=== PATIENT | female | born 1970 | race Two or more races ===

== ENCOUNTER → 2024-07-19 | Outpatient (CLI) | payer BC, SELFPAY ==
--- NOTE | 2024-07-19 08:08 | XR_ITS ---
Examination: Abdomen sonogram, complete Date and time of exam: July 19, 2024 0826 hours INDICATIONS: Abdominal bloating and gassiness beginning 3 years ago, history gallstones. Technique: Multiple real-time grayscale transabdominal sonographic images of the abdomen have been obtained. Findings: Multiple gallstones Gallbladder wall is thickened 0.5 cm Common bile duct 0.4 cm Pancreatic head 2.7 cm Aorta not enlarged Liver 11.4 cm fatty infiltration smooth contour no focal liver lesions Normal hepatopedal portal venous flow Patent IVC Right kidney 10.5 x 5.4 x 5.3 cm cortex 1.2 cm Left kidney 10.8 x 5.2 x 5.6 cm renal cortex 1.8 cm Mild bilateral renal parenchymal scar formation Spleen 7.9 cm IMPRESSION: Cholelithiasis, consider HIDA scan or MRCP follow-up to exclude cholecystitis Normal sized common bile duct Fatty liver
== END | disposition home or self-care (01) ==
LOC: CDIM 08:05
PROVIDERS: PCP Internal Medicine; Referring Provider Specialist; Visit Provider Specialist
DX: K80.20 Calculus of gallbladder without cholecystitis without obstruction (principal); K76.0 Fatty (change of) liver, not elsewhere classified
CPT/HCPCS: 76700

== ENCOUNTER → 2024-07-19 | Outpatient (CLI) | payer BC, SELFPAY | END | disposition home or self-care (01) | LOC: COPL 15:02 | PROVIDERS: PCP Internal Medicine; Referring Provider Specialist; Visit Provider Specialist | DX: R10.32 Left lower quadrant pain (principal) ==

== ENCOUNTER → 2024-07-24 | Outpatient (CLI) | payer BC, SELFPAY ==
[2024-07-24 07:52] LABS: Misc Send Out* See Sep Rpt
[2024-07-28 06:53] LABS: Immunoglobulin A 141 mg/dL (47-310); tTG Ab, IgA <1.0 U/mL
== END | disposition home or self-care (01) ==
LOC: COPL 07:38
PROVIDERS: PCP Internal Medicine; Referring Provider Specialist; Visit Provider Specialist
DX: R10.32 Left lower quadrant pain (principal); R10.31 Right lower quadrant pain; R14.0 Abdominal distension (gaseous); R10.13 Epigastric pain
CPT/HCPCS: 36415; 82784; 83789; 86364

== ENCOUNTER → 2024-08-09 | Outpatient (CLI) | payer BC, SELFPAY ==
--- NOTE | 2024-08-09 07:30 | XR_ITS ---
Examination: Breast ultrasound complete, bilateral Date and time of exam: August 09, 2024 0738 hours INDICATIONS: Mammogram May 31, 2024 10 mm focal asymmetry upper outer right breast mid depth Technique: Real-time grayscale ultrasonographic imaging bilateral breasts, including all 4 quadrants as well as nipple retroareolar and axillary regions. Findings: Sonographic images right breast No cystic or solid mass Sonographic images left breast 1:00 cyst 5 x 4 mm No solid nodules IMPRESSION: BI-RADS Category 2: Benign findings
--- NOTE | 2024-08-09 08:30 | XR_ITS ---
Examination: Diagnostic digital mammography, bilateral Computer aided detection 3-D breast Tomosynthesis, bilateral Date and time of exam: August 09, 2024 0734 hours INDICATIONS: Mammogram May 31, 2024 10 mm focal asymmetry upper outer right breast, 18 mm focal asymmetry upper outer left breast Technique: Nonmagnified MLO, CC views of the breasts to been obtained, reconstructed from 3-D Tomosynthesis images. R2 computer aided detection program utilized for evaluation of suspicious masses and/or abnormal calcifications. 3-D Tomosynthesis images obtained. Findings: The breasts are heterogeneously dense, which may obscure small masses Spot compression films demonstrate no suspicious left breast mass There remains focal asymmetry slightly outer right breast on the CC view Impression: BI-RADS Category 3: Probably benign findings One additional 6 month right mammogram follow-up is needed to document stability of focal asymmetry outer right breast noted on the CC view.
== END | disposition home or self-care (01) ==
LOC: CDIM 07:21
PROVIDERS: PCP Internal Medicine; Referring Provider Internal Medicine; Visit Provider Internal Medicine
DX: R92.333 Mammographic heterogeneous density, bilateral breasts (principal); N64.89 Other specified disorders of breast; N60.02 Solitary cyst of left breast
CPT/HCPCS: 76641; 77062; 77066; G0279

== ENCOUNTER 2024-08-17 10:45 | Day surgery (SDC) | payer BC, SELFPAY ==
--- NOTE | 2024-08-11 07:00 | EKG_ITS ---
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
[2024-08-11 08:47] VITALS: BMI 37.9
[2024-08-11 09:25] LABS: Basophils % (Auto) 0 % (0-2.5); Eosinophils # (Auto) 0.2 Thou/mm3 (0.0-0.5); Eosinophils % (Auto) 2 % (0-10); Hemoglobin 14.2 g/dL (12.0-16.0); Immature Granulocytes % (Auto) 1 % (0-0); Immature Granulocytes Auto 0.05 Thou/mm3 (0.00-0.00); Lymphocytes # (Auto) 2.2 Thou/mm3 (1.0-4.8); Lymphocytes % (Auto) 31 % (10-50); Mean Corpuscular HGB Conc 33.8 g/dl (31.0-37.0); Mean Corpuscular Hemoglobin 28.9 pg (25.0-35.0); Mean Corpuscular Volume 85 fL (80-100); Monocytes # (Auto) 0.5 Thou/mm3 (0.0-0.8); Monocytes % (Auto) 7 % (0-12); Neutrophils # (Auto) 4.1 Thou/mm3 (1.8-7.7); Neutrophils % (Auto) 58 % (37-80); Nucleated Red Blood Cell % 0 /100 WBC (0); Platelet Count 289 Thou/mm3 (140-440); RDW Standard Deviation 41.5 fL (36.4-46.3); Red Blood Count 4.92 Miln/mm3 (4.00-5.20)
[2024-08-11 09:35] LABS: Alanine Aminotransferase 18 U/L (10-49); Albumin, Serum 4.8 gm/dL (3.5-5.0); Albumin/Globulin Ratio 1.8 (1.2-2.2); Alkaline Phosphatase 82 U/L (46-116); Anion Gap 6 (7-16); Aspartate Amino Transferase 18 U/L (0-34); BUN/Creatinine Ratio 11 Ratio (12-20); Bilirubin,Total 0.6 mg/dL (0.3-1.2); Blood Urea Nitrogen 9 mg/dL (9-23); Calcium 9.7 mg/dL (8.3-10.6); Calcium (Corrected) 9.7 mg/dL (8.5-10.1); Carbon Dioxide 28.6 mMol/L (20.0-31.0); Chloride 105 mMol/L (98-107); Creatinine (Component) 0.8 mg/dL (0.6-1.3); Estimated Creatinine Clearance 82.7 mL/min (>60); Globulin 2.7 gm/dL (2.3-3.5); Glucose 113 mg/dL (74-106); Osmolality,Calculated 279 (275-295); Potassium 4.2 mMol/L (3.4-5.1); Sodium 140 mMol/L (136-145); Total Protein 7.5 gm/dL (5.7-8.2); eGFR > 60 See Note
[2024-08-17] VITALS (7 sets, daily range): BP systolic 128–168; BP diastolic 69–104; PULSE 59–81; RESP 12–20; TEMP 36.2–36.4; O2SAT 95–99; BMI 37.7
[2024-08-17] MEDS: RINGERS LACTATED 1000 ML 1,000 ML 20 ML IV (11:16)
--- NOTE | 2024-08-17 12:39 | ESOP_ITS ---
Date of Procedure 08/17/24 Pre Op Diagnosis Symptomatic cholelithiasis Post Op Diagnosis Cholelithiasis with cholecystitis Cirrhosis of the liver without ascites Procedure Laparoscopic cholecystectomy Findings Mildly distended gallbladder with multiple gallstones and chronic cholecystitis. Mild to moderate nodularity throughout the liver consistent with cirrhosis of the liver without ascites Procedure Description Patient was brought into the operating room in supine position. After administration of general endotracheal anesthesia abdomen was prepped and draped in standard surgical manner. A Veress needle was inserted through the umbilicus and pneumoperitoneum was obtained up to 15 mmHg. The Veress needle was then removed, a 5 mm infraumbilical incision was made and the 5mm trocar was inserted. Laparoscopic camera was placed. Under direct visualization a laparoscopic camera a 10 mm trocar was placed in subxiphoid and two 5 mm trocars placed in right upper quadrant. There was no evidence of ascites. There was mild to moderate amount of nodularity throughout the liver consistent with cirrhosis of the liver. The gallbladder was identified and was noted to be mildly distended with multiple gallstones and chronic cholecystitis. It was retracted cephalad and laterally. Dissection started near the infundibulum of gallbladder where cystic duct and gallbladder junction clearly identified. The cystic duct was circumferentially dissected off the peritoneum and surrounding inflammatory tissue. The critical view of safety was clearly demonstrated. Cystic duct was then divided between 2 endoclips proximally and one distally. The cystic artery was similarly dissected and divided. The gallbladder was then from the liver bed using electrocautery. The gallbladder was then placed inside an Endo Catch and removed from the abdomen utilizing subxiphoid trocar site. The area was copiously and thoroughly washed and irrigated, all the fluid was suctioned and the suction fluid returned clear. Hemostasis achieved using electrocautery, also topical hemostatic agent using snow Surgicel placed at the gallbladder fossa to further assure hemostasis. Endoclips noted be in place and intact without any bleeding or any leakage. Hemostasis was adequate and satisfactory. The subxiphoid trocar sites fascial defect was closed with 0 Vicryl using Endo Closure device. Instruments and trocars removed, pneumoperitoneum was evacuated and the incisions closed with 4-0 Monocryl in subcuticular fashion. Instrument needle and sponge counts were all reported to be correct X2. Patient tolerated the procedure well, was extubated, breathing spontaneously and without difficulty and was transferred to postanesthesia care in stable condition. Anesthesia GETA and local Pathology / specimen Other (Gallbladder and contents) Estimated Blood Loss 10 Condition Stable Disposition PACU Surgeon Abisai Nelson MD Surgical Staff Operation Date: 08/17/24 12:45 Case Staff Anesthesiologist: Santosh Araujo RNclassified advertising clerk: Tatiana Marcano
--- NOTE | 2024-08-17 13:39 | SUR.PHASEI ---
1339: Pt. AAOx4, vitals stable, breathing unlabored, complaint of pain /, will give pain medicine, no complaint of nausea, dressing to ABD CDI, no active bleed noted, report received from MD Araujo and Logan AGUILERA.
[2024-08-17] MEDS: fentaNYL CIT INJ 50 mCg/ML AMP 2ML IV ×3 (13:46→14:04)
--- NOTE | 2024-08-17 14:30 | SUR.PHASEII ---
1430: Pt. AAOx4, vitals stable, breathing unlabored, no complaint of pain or nausea, dressing to ABD CDI, no active bleed noted, pt. tolerated sips of water well, pt. ambulated to wheelchair with steady gait and no assist, no complications. Gave discharge instructions to the pt. and her ride, both verbalized understanding and had no further questions. Pt. left with all personal belongings.
== END 2024-08-17 14:30 | disposition home or self-care (01) ==
PROVIDERS: PCP Internal Medicine; Referring Provider Surgery; Visit Provider Surgery
PROC: 0FT44ZZ Resection of Gallbladder, Percutaneous Endoscopic Approach (ICD-10-PCS; CPT 47562; principal; 2024-08-17 12:30)
DX: K80.10 Calculus of gallbladder with chronic cholecystitis without obstruction (principal); K74.60 Unspecified cirrhosis of liver; Z01.810 Encounter for preprocedural cardiovascular examination
CPT/HCPCS: 47562; 36415; 80053; 85025; 93005; A4217; A4649; J0694; J1100; J2405; J2704; J2710; J3010; J3490; J7120; J1596

== ENCOUNTER → 2024-11-24 | Outpatient (CLI) | payer BC, SELFPAY ==
--- NOTE | 2024-11-24 14:45 | XR_ITS ---
Examination: Lumbar spine, 5 views Technique: Lumbar spine AP, lateral, coned lateral lower lumbar spine, bilateral obliques 5 views Exam date and time: November 24, 2024 1457 hours INDICATIONS: Lower back pain beginning 3 weeks ago FINDINGS: Adequate alignment lumbar vertebral bodies Mild to moderate diffuse lumbar disc narrowing, most prominent L3-L4 No spondylolisthesis No lumbar fracture IMPRESSION: Mild to moderate diffuse lumbar degenerative disc disease
== END | disposition home or self-care (01) ==
LOC: CDIM 14:24
PROVIDERS: PCP Internal Medicine; Referring Provider Internal Medicine; Visit Provider Internal Medicine
DX: M51.360 Other intervertebral disc degeneration, lumbar region with discogenic back pain only (principal)
CPT/HCPCS: 72110

== ENCOUNTER → 2025-01-23 | Outpatient (CLI) | payer BC, SELFPAY ==
--- NOTE | 2025-01-23 10:10 | XR_ITS ---
Examination: PA lateral chest 2 views TECHNIQUE: Upright PA lateral chest 2 views Date and time: January 23, 2025 1031 hours Comparison May 26, 2021 INDICATIONS: Positive PPD this week FINDINGS: Scarring versus pneumonia in the lingular segment Right lung clear Normal heart size IMPRESSION: Scarring versus pneumonia in the lingular segment left upper lobe
[2025-01-23 10:59] LABS: Misc Send Out* See Sep Rpt
== END | disposition home or self-care (01) ==
LOC: CDIM 09:56 → COPL 10:44
PROVIDERS: PCP Internal Medicine; Referring Provider Internal Medicine; Visit Provider Radiology Diagnostic Radiology
DX: R76.11 Nonspecific reaction to tuberculin skin test without active tuberculosis (principal); J30.9 Allergic rhinitis, unspecified
CPT/HCPCS: 71046

== ENCOUNTER → 2025-03-23 | Outpatient (CLI) | payer BC, SELFPAY ==
--- NOTE | 2025-03-23 08:15 | XR_ITS ---
Examination: Diagnostic digital mammography, unilateral, right Computer aided detection 3-D breast Tomosynthesis, unilateral Date and time of exam: March 23, 2025 0753 hours INDICATIONS: Mammogram May 31, 2024 10 mm focal asymmetry upper outer right breast Technique: Nonmagnified MLO, CC views of the right breast have been obtained, reconstructed from 3-D Tomosynthesis images. R2 computer aided detection program utilized for evaluation of suspicious masses and/or abnormal calcifications. 3-D Tomosynthesis images obtained. Findings: The breast is heterogeneously dense, which may obscure small masses No interval suspicious mass on this study Benign calcifications Impression: BI-RADS category 2: Benign findings Return to yearly follow-up mammography
== END | disposition home or self-care (01) ==
LOC: CDIM 07:42
PROVIDERS: Referring Provider Internal Medicine; Visit Provider Internal Medicine
DX: R92.321 Mammographic fibroglandular density, right breast (principal); R92.1 Mammographic calcification found on diagnostic imaging of breast
CPT/HCPCS: 77061; 77065; G0279

== ENCOUNTER → 2025-04-05 | Outpatient (CLI) | payer BC, SELFPAY ==
--- NOTE | 2025-04-05 17:00 | XR_ITS ---
Examination: MRI left foot, without contrast Date and time of exam: April 05, 2025, 1828 hours INDICATIONS: Injury to the foot with foot fracture one month ago with persistent foot pain Technique: Multiple axial sagittal and coronal images of the left foot have been obtained with the Siemens high-resolution 1.5 Ana MRI scanner. Images obtained include T2-weighted fat-suppressed sagittal sections, TR 3500, TE 46, T2 weighted coronal fat suppressed images, TR 3050, TE 84, T2-weighted transverse fat suppressed images, TR 3260, TE 63, proton density transverse images, TR 4720 TE 46, and T1 weighted coronal images, TR 560, TE 13. Findings: Distal tibia and distal fibula intact Calcaneus, talus navicular intact Acute nondisplaced fractures lateral cuboid Acute nondisplaced fractures middle and medial cuneiforms Acute fractures with offset bases fourth third and second metatarsals Digits appear intact Plantar fascia intact IMPRESSION: Fractures lateral cuboid, middle and medial cuneiforms, bases second third and fourth metatarsals Consider CT scan of the foot follow-up to best assess displacement of the cuneiform and metatarsal fractures
== END | disposition home or self-care (01) ==
LOC: SMRI 16:40
PROVIDERS: PCP Internal Medicine; Referring Provider Orthopaedic Surgery; Visit Provider Orthopaedic Surgery
DX: S92.302D Fracture of unspecified metatarsal bone(s), left foot, subsequent encounter for fracture with routine healing (principal); X58.XXXD Exposure to other specified factors, subsequent encounter
CPT/HCPCS: 73718

== ENCOUNTER → 2025-04-06 | Outpatient (CLI) | payer BC, SELFPAY ==
--- NOTE | 2025-04-06 | XR_ITS ---
Examination: CT left foot, without contrast. 2-D sagittal reconstructions. 2-D coronal reconstructions. 3-D reconstructions. Date and time of exam:April 09, 2025 1650 hours INDICATIONS: Patient fell 4 days ago with injury to the foot, foot pain CTDI: vol (mGy):4.43 DLP: (mGycm):101 Technique: Multiple 1.25 mm axial sections of the left foot without intravenous contrast 2-D sagittal coronal reconstructions 3-D reconstructions Nodose protocols Automated exposure control, adjustment MA KV according to patient size FINDINGS: Distal tibia and distal fibula intact Talus calcaneous cuboid intact Small fractures off the dorsal surface of the medial cuneiform, sagittal image 19 Comminuted fractures involving the proximal fourth, third, second metatarsals, sagittal image 17 without major displacement First metatarsal fifth metatarsal intact Digits intact. IMPRESSION: Small fractures off the dorsal surface of the medial cuneiform Comminuted fractures involving the proximal second third and fourth metatarsals without major displacement
== END | disposition home or self-care (01) ==
LOC: CCTX 16:15
PROVIDERS: PCP Internal Medicine; Referring Provider Orthopaedic Surgery; Visit Provider Orthopaedic Surgery
DX: S92.332D Displaced fracture of third metatarsal bone, left foot, subsequent encounter for fracture with routine healing (principal); S92.342D Displaced fracture of fourth metatarsal bone, left foot, subsequent encounter for fracture with routine healing; S92.242D Displaced fracture of medial cuneiform of left foot, subsequent encounter for fracture with routine healing; W19.XXXD Unspecified fall, subsequent encounter
CPT/HCPCS: 73700

== ENCOUNTER → 2025-08-06 | Outpatient (CLI) | payer BC, SELFPAY ==
[2025-08-06 08:44] LABS: Collection Type, Urine Clean Catch
[2025-08-06 09:30] LABS: Basophils # (Auto) 0.0 Thou/mm3 (0.0-0.2); Basophils % (Auto) 1 % (0-2.5); Eosinophils # (Auto) 0.2 Thou/mm3 (0.0-0.5); Eosinophils % (Auto) 3 % (0-10); Hematocrit 40.3 % (36.0-46.0); Hemoglobin 13.6 g/dL (12.0-16.0); Immature Granulocytes Auto 0.01 Thou/mm3 (0.00-0.00); Lymphocytes # (Auto) 2.3 Thou/mm3 (1.0-4.8); Lymphocytes % (Auto) 37 % (10-50); Mean Corpuscular HGB Conc 33.7 g/dl (31.0-37.0); Mean Corpuscular Hemoglobin 29.3 pg (25.0-35.0); Mean Corpuscular Volume 87 fL (80-100); Monocytes # (Auto) 0.4 Thou/mm3 (0.0-0.8); Monocytes % (Auto) 7 % (0-12); Neutrophils # (Auto) 3.3 Thou/mm3 (1.8-7.7); Neutrophils % (Auto) 53 % (37-80); Nucleated Red Blood Cell # 0.00 Thou/mm3 (0.00-0.00); Nucleated Red Blood Cell % 0 /100 WBC (0); Platelet Count 272 Thou/mm3 (140-440); RDW Standard Deviation 44.5 fL (36.4-46.3); Red Blood Count 4.64 Miln/mm3 (4.00-5.20); White Blood Count 6.2 Thou/mm3 (3.6-11.0)
[2025-08-06 09:40] LABS: Bilirubin,Urine Negative (Negative); Blood,Urine Negative (Negative); Clarity,Urine Clear (Clear/Hazy); Color,Urine Yellow (Lt Yel-Yel); Glucose, Urine Negative (Negative); Hyaline Casts,Urine < 1 /hpf (0-1); Ketones,Urine Negative (Negative); Leukocyte Esterase,Urine Positive (Negative); Nitrite,Urine Negative (Negative); PH,Urine 5.5 (5.0-7.0); Protein,Urine Trace (Neg - Trace); RBC,Urine 4 /hpf (0-3); Specific Gravity,Urine 1.026 (1.001-1.035); Squamous Epithelial Cell,Urine 7 /hpf (0-5); Urobilinogen,Urine Negative mg/dL (0.0-1.0); WBC,Urine 2 /hpf (0-5)
[2025-08-06 09:49] LABS: Glucose Estimated Average 114 mg/dL (80-131); Hemoglobin A1C 5.6 % Hgb (4.8-6.0)
[2025-08-06 10:02] LABS: Alanine Aminotransferase 11 U/L (10-49); Albumin, Serum 4.6 gm/dL (3.5-5.0); Albumin/Globulin Ratio 1.8 (1.2-2.2); Alkaline Phosphatase 63 U/L (46-116); Anion Gap 9 (7-16); Aspartate Amino Transferase 19 U/L (0-34); BUN/Creatinine Ratio 10 Ratio (12-20); Bilirubin,Direct 0.2 mg/dL (0.0-0.3); Bilirubin,Total 0.8 mg/dL (0.3-1.2); Blood Urea Nitrogen 7 mg/dL (9-23); Calcium 9.4 mg/dL (8.3-10.6); Calcium (Corrected) 9.4 mg/dL (8.5-10.1); Carbon Dioxide 29.2 mMol/L (20.0-31.0); Cardiac Risk Estimate 2.9 RATIO (3.7-5.6); Chloride 106 mMol/L (98-107); Cholesterol 173 mg/dL (132-200); Creatinine (Component) 0.7 mg/dL (0.6-1.3); Globulin 2.5 gm/dL (2.3-3.5); Glucose 96 mg/dL (74-106); HDL Cholesterol 60 mg/dL (40-60); LDL Cholesterol,Calculated 94 mg/dL (0-130); Osmolality,Calculated 284 (275-295); Potassium 4.0 mMol/L (3.4-5.1); Sodium 144 mMol/L (136-145); Total Protein 7.1 gm/dL (5.7-8.2); Triglycerides 93 mg/dL (30-150); Uric Acid 4.7 mg/dL (3.1-7.8); eGFR > 60 See Note
[2025-08-06 13:28] LABS: Vitamin B12 469 pg/mL (211-911); Vitamin D 25 Hydroxy Total 69.5 ng/mL (7.3-40.2)
== END | disposition home or self-care (01) ==
LOC: COPL 08:10
PROVIDERS: PCP Internal Medicine; Referring Provider Internal Medicine; Visit Provider Internal Medicine
DX: Z00.00 Encounter for general adult medical examination without abnormal findings (principal); K30 Functional dyspepsia
CPT/HCPCS: 36415; 80053; 80061; 80076; 81001; 82248; 82306; 82607; 83036; 84550; 85025